=== PATIENT | female | born 1930 | race Caucasian/White ===

== ENCOUNTER 2017-01-07 06:56 | Inpatient (IN) | payer MEDICARE, OTHER ==
[~2017-01-07] VITALS: Ht 157.5 cm; Wt 80.5 kg
--- NOTE | ~2017-01-07 | DS ---
PATIENT'S NAME: LIZ WHITLEY [facility] AGE: 86 Y [address] ROOM: [id number] [place] [address] LOCATION: [facility] [place] ADMIT DATE: 01/07/2017 Discharge Summary DISCHARGE DATE: 01/12/2017 FAMILY PHYSICIAN: Brenda Andujar MD ATTENDING PHYSICIAN: Harshal Holcomb DISCHARGE DIAGNOSES: 1. Sepsis, secondary to recurrent Clostridium difficile colitis. 2. Acute kidney injury on chronic kidney disease. 3. Essential hypertension. 4. Generalized weakness. 5. Right 3rd through 5th metatarsal fracture. HOSPITAL COURSE: Please refer to admitting history and physical as dictated by Dr. Holcomb. Briefly, the patient was admitted to [facility] with diarrhea, weakness, and fever. Stool was tested for C. diff, which came back as positive. She was started on fluids. Her home medications were resumed. She was started on Florastor 250 mg p.o. twice a day. She was also started on Flagyl 500 mg p.o. every 8 hours for 10 days, and Dificid 200 mg p.o. twice daily for 10 days. Heparin was used for DVT prophylaxis. Due to the patient's right foot pain, Dr. Napoles was consulted. She was found to have a right 3rd, 4th, and 5th metatarsal fracture. She was placed in a short Cam walker boot to be on when ambulating or in the down position. She was made heel weightbearing. Physical Therapy and Occupational Therapy were consulted. Her laboratory data was monitored throughout her stay. Her creatinine improved with fluids. Her home blood pressure medicines were renewed. Her stools did gradually become formed. She had no further diarrhea. She was able to ambulate with her Cam boot. It was recommended that she continue outpatient PT and OT while at the assisted living facility. On 01/12/2017, the patient's vital signs were stable. It was felt as though she was safe to discharge to assisted living facility. Follow up with Dr. Andujar for the CBC and BMP in 3 days. Follow up with Dr. Napoles in 1 week. LABORATORY DATA: Sodium remained stable, 138-141; potassium of 3.7-4.2; calcium 8.4; BUN upon admit 29, prior to discharge 16; creatinine 1.7 upon admit, it trended down to 1.0 prior to discharge; AST 17; ALT 20; phos 2.5; GFR upon admit 28, prior to discharge 52; hemoglobin 11.5; WBCs upon admit 11.5, prior to discharge 5.8. UA: Leukocytes 100, nitrites negative, wbc's 5-10, bacteria negative. Urine culture likely contaminant. Stool positive for C. diff. PATIENT'S NAME: LIZ WHITLEY [facility] AGE: 86 Y [address] ROOM: [address] [address] LOCATION: [facility] [place] ADMIT DATE: 01/07/2017 Discharge Summary DISCHARGE DATE: 01/12/2017 FAMILY PHYSICIAN: Brenda Andujra MD ATTENDING PHYSICIAN: Harshal Holcomb DISCHARGE INSTRUCTIONS: The patient will be discharged to assisted living facility with home health care, PT, and OT to follow. Diet: As tolerated. Activity: Heel weightbearing with Cam boot to right foot. Cam boot on when up. Use walker at all times. FOLLOWUP: With Dr. Andujar with CBC and BMP in 3 days. Follow up with Dr. Napoles in 1 week. DISCHARGE MEDICATIONS: 1. Vitamin D3, 1000 units p.o. daily. 2. Celexa 40 mg p.o. daily. 3. Spironolactone 12.5 mg p.o. daily. 4. Ramipril 10 mg p.o. daily. 5. Tylenol 650 mg p.o. twice a day. 6. Calcium with vitamin D, 1 tablet p.o. twice daily. 7. [place]-3 1000 mg orally four times a day. 8. MiraLAX 17 g p.o. as needed. 9. Melatonin 3 mg p.o. q.h.s. 10. Myrbetriq 50 mg p.o. q.h.s. 11. Pepcid 20 mg p.o. q.h.s. 12. Neurontin 300 mg p.o. twice daily. 13. Clonazepam 0.5 mg p.o. q.h.s. 14. Colace 100 mg p.o. twice daily p.r.n. 15. Pravastatin 20 mg p.o. q.h.s. 16. Tylenol 650 mg p.o. q.4 hours as needed for pain or fever. 17. Amoxicillin 2000 mg p.o. one time as needed prior to dental appointment. 18. Milk of magnesia 30 mL p.o. daily as needed for constipation. 19. Flonase 1 spray in each nostril daily. 20. Nystatin topical ointment three times daily as needed for rash. 21. Bumex 1 mg p.o. daily with followup with PCP for further instructions as this was a recent dosage change. 22. Albuterol 2 puffs four times daily. 23. Albuterol inhaler one every 4 hours as needed. 24. Dificid 200 mg p.o. twice daily, stop date on 01/16/2017 after p.m. dose. 25. Flagyl 500 mg p.o. every 8 hours, stop date 01/17/2017. 26. Florastor 250 mg p.o. twice a day. Thank you for allowing us to participate in the care of this patient as she has been hospitalized at [facility]. PATIENT'S NAME: LIZ WHITLEY [facility] AGE: 86 Y [address] ROOM: [place] [address] LOCATION: [facility] ADMIT DATE: 01/07/2017 Discharge Summary DISCHARGE DATE: 01/12/2017 FAMILY PHYSICIAN: Brenda Andujar MD ATTENDING PHYSICIAN: Harshal Holcomb HAL TORRES APRN FOR MD MICHELLE NOVA/modl /[id number] CC: Brenda Andujar MD d: 01/13/17 0114 t: 01/18/17 1512, DISCHARGE SUMMARY
--- NOTE | ~2017-01-07 | HP ---
PATIENT'S NAME: LIZ WHTILEY [facility] AGE: 86 Y [address] ROOM: [address] [address] [place] [facility] [place] DATE: 01/07/2017 History & Physical DISCHARGE DATE: FAMILY PHYSICIAN: Brenda Andujar MD ATTENDING PHYSICIAN: MICHAELA PICKENS DATE OF SERVICE: CHIEF COMPLAINT: Diarrhea since yesterday. HISTORY OF PRESENT ILLNESS: This is an 86-year-old female, long term resident, who was discharged here from our hospital in October 2016 with severe sepsis secondary to C. diff colitis. At that time, the patient was treated with p.o. vancomycin and Flagyl. Upon discharge, the patient recovered. However, her C. diff recurred in the end of October 2016, at that time, the patient was hospitalized in [facility] for roughly a week. During that hospitalization, the patient developed hives to p.o. vancomycin according to the patient, and the patient's daughter. P.o. vancomycin was stopped, and the patient was just treated with Flagyl. The patient subsequently improved and recovered. The Flagyl finished on December 30, 2016. However, yesterday morning, she started developing this recurrent diarrhea again, she had about 10 times yesterday. Today, she has had about 3 times. Due to the concern for recurrent C. diff, the patient was brought here for evaluation. In the emergency room, the patient was tested positive for C. diff again. She denies any abdominal pain or any shortness of breath or any other complaints. REVIEW OF SYSTEMS: As mentioned in the history of present illness. All other systems reviewed and negative except those mentioned in the history of present illness. PAST MEDICAL HISTORY: 1. Depression. 2. Sick sinus syndrome, status post pacemaker implantation. 3. Hypertension. 4. Hyperlipidemia. 5. Osteoarthritis. 6. C. diff colitis treated here in our hospital in September, was discharged in October 2016. 7. History of recurrent C. diff infection again in end of October and discharged in November 2016 from the [facility]. 8. Rectoanal mass (the patient does not want to pursue any further imaging or testing due to her advanced age). PATIENT'S NAME: LIZ WHITLEY [facility] AGE: 86 Y [address] ROOM: [address] [address] LOCATION: [facility] [place] ADMIT DATE: 01/07/2017 History & Physical DISCHARGE DATE: FAMILY PHYSICIAN: Brenda Andujar MD ATTENDING PHYSICIAN: MICHAELA PICKENS 9. CKD stage 3, baseline GFR around 50 and baseline creatinine around 1.1. ALLERGIES: APPARENTLY ALLERGIC TO P.O. VANCOMYCIN IN [facility] WITH GENERALIZED HIVES. HOME MEDICATIONS: Currently is being reconciled. SOCIAL HISTORY: The patient denies any cigarette or alcohol or illegal drug use. FAMILY HISTORY: The patient could not remember how her parents or any past medical history in her parents. PAST SURGICAL HISTORY: 1. Status post bilateral shoulder surgery. 2. Status post bilateral knee surgery. 3. Status post carpal tunnel syndrome repair. 4. Status post tonsillectomy. 5. Status post pacemaker implantation. PHYSICAL EXAMINATION: VITAL SIGNS: At the time of my dictation, temperature 97.9, heart rate 60, respirations 16, blood pressure 148/60, saturation 95% on room air. GENERAL APPEARANCE: Alert and oriented x3, in no acute distress. HEENT: Pupils equally round and reactive to light. Extraocular muscles intact. Anicteric sclerae. Nasal turbinates are normal bilaterally. Moist oral mucosa. NECK: No JVD. CARDIOVASCULAR: Regular rate and rhythm. Normal S1, S2. No murmur, no rubs, no gallops. RESPIRATORY: Clear. Chest wall nontender to palpation. ABDOMEN: Soft, nontender, obese, bowel sounds present, and no hepatosplenomegaly. EXTREMITIES: No edema in upper or lower extremity. In the right ankle and in the right foot area, the patient has some ecchymosis, that is tender to palpation. The patient says that this morning when she was trying to get back onto the bed, the patient did hit the right foot against the ground when she felt weak in her leg, but she did not hit her head, and she did not suffer any syncope. MUSCULOSKELETAL: Range of motion intact. SKIN: Ecchymosis in the right foot. Otherwise, no ulcer, no rash, no cyanosis. PATIENT'S NAME: LIZ WHITLEY [facility] AGE: 86 Y [address] ROOM: [address] [address] LOC[place]: [facility] [place]MIT DATE: 01/07/2017 History & Physical DISCHARGE DATE: FAMILY PHYSICIAN: Brenda Andujar MD ATTENDING PHYSICIAN: MICHAELA PICKENS NEUROLOGIC: Grossly nonfocal. LABORATORY DATA: Lactic acid 1.4. White blood cell 11.5, hemoglobin 12.5, hematocrit 38.9, MCV 99, platelets 273, glucose 118, BUN 29, creatinine 1.7, sodium 138, potassium 4.2, chloride 100, CO2 of 32. Calcium 9.3, total protein 6.2, albumin 3.1, AST 17, ALT 20, alkaline phosphatase 57, total bilirubin 0.8, GFR 28. Anion gap 10.2. Urinalysis are leukocyte 100, nitrite negative, bacteria negative, white blood cells 5-10. Influenza screening negative. Procalcitonin 0.07. IMAGING STUDIES: Chest x-ray on admission shows stable chest. No evidence of acute disease. ASSESSMENT AND PLAN: 1. Regarding her sepsis secondary to recurrent C. difficile colitis: Apparently, the patient has allergy to p.o. vancomycin when she was in [facility] just in November 2016 with generalized hives. The plan will be continue with p.o. Flagyl, and I will start her on the p.o. Florastor 250 mg p.o. b.i.d. as well as fidaxomicin 200 mg p.o. b.i.d. Ideally, I will use the p.o. vancomycin but given the patient has recurrent C. difficile and is apparently allergic to p.o. vancomycin, therefore I will use the fidaxomicin. The patient should consider fecal implant in the future given that the patient has had multiple recurrent C. difficile infection already, and the patient lives in a long term, which put her even at high risk of having another recurrent C. difficile. Another potential risk factor is her advanced age. Her daughter, who also had a C. difficile infection multiple times in the past, she is status post fecal implant and she is already cured. I have advised the daughter to ask the primary care physician to refer the patient in the future for fecal implant. The patient can have a cardiac diet. Fall and aspiration precaution. I will also get the medical records from the [facility] to see what reaction and what medication they used for her C. difficile in October 2016 while she was hospitalized over there. PT and OT. 2. Regarding her right foot ecchymosis: Probably, the patient sprained her ankle. I will get an x-ray of the right foot to rule out any fracture. I will put ice pack to the right foot t.i.d. p.r.n. for inflammation and pain control. For pain control, she can have Tylenol. I will avoid NSAID given that she currently has acute kidney injury on chronic kidney disease. 3. Regarding her acute kidney injury on chronic kidney disease stage 3: I will hydrate her with normal saline at 75 mL/h and check the basic metabolic panel again in the morning. 4. Regarding her pyuria: In the setting of sepsis, I will start her on IV ceftriaxone given that urine culture has already been obtained, and she PATIENT'S NAME: LIZ WHITLEY [facility] AGE: 86 Y [address] ROOM: [place] [address] [place]: [facility] [place] DATE: 01/07/2017 History & Physical DISCHARGE DATE: FAMILY PHYSICIAN: Brenda Andujar MD ATTENDING PHYSICIAN: MICHAELA PICKENS does have some pyuria on urinalysis. Follow up with blood culture and also on the urine culture. 5. Deep venous thrombosis prophylaxis: The patient will be on heparin subcu 3 times a day. 6. Code status: Sheis a DNR/DNI. 7. Regarding her hypertension: I will hold the blood pressure medication given that she has acute kidney injury on chronic kidney disease in the setting of sepsis from C. difficile colitis. 8. Regarding her sick sinus syndrome, status post pacemaker implantation: No active issue. Time spent on the day of admission 40 minutes including chart review, interviewing and examining the patient, addressing all the questions and concerns the patient and the patient's daughter had at the bedside, and I also went over the plan of care in detail with the patient, the patient's daughter, and also with the nurse. MICHAELA PICKENS MD CC/solo /[id number] D: [id number] T: [id number] HISTORY & PHYSICAL
--- NOTE | ~2017-01-07 | CON ---
PATIENT'S NAME: LIZ WHITLEY [facility] AGE: 86 Y [address] ROOM: [place] [address] [place]: [facility] [place] ADMIT DATE: 01/07/2017 Consultation DISCHARGE DATE: FAMILY PHYSICIAN: Brenda Andujar MD ATTENDING PHYSICIAN: MICHAELA PICKENS REASON FOR CONSULTATION: Right foot pain. HISTORY OF PRESENT ILLNESS: This is an 86-year-old female patient, who was admitted on January 07, 2017, with recurrent C. diff and weakness. She was hospitalized for severe sepsis and C. diff here at [facility] in 2016. She did recover and discharged.the patient was later admitted to [facility] for another week's time for recurrent Clostridium difficile. The patient during her hospitalization at [facility] did develop a reaction to vancomycin. The patient did finish a course of Flagyl on December 30, 2016. The patient says that she was trying to get into bed the other night when she steps up onto her "box" to get into bed as she normally would. The patient says that she did have the help of staff as she normally did. The patient says that she fell to her knees and caught her right foot. Records indicate that the patient was helped to the ground by a staff at this time. The patient complains of right foot pain with weightbearing relieved with rest and elevation. The patient denies any prior injuries or surgeries to her right foot. X-rays do show mildly displaced distal metatarsal fractures of the third through fifth digits. PAST MEDICAL HISTORY: 1. Depression. 2. Sick sinus syndrome status post pacemaker implantation. 3. Hypertension. 4. Hyperlipidemia. 5. Osteoarthritis. 6. History of Clostridium difficile, treated recently in the past with recurrence. 7. Rectal anal mass (the patient does not want to pursue further imaging due to her advanced age). 8. Chronic kidney disease. PAST SURGICAL HISTORY: 1. Bilateral shoulder surgery. 2. Bilateral knee replacements. 3. Carpal tunnel syndrome repair. 4. Tonsillectomy. PATIENT'S NAME: LIZ WHITLEY [facility] AGE: 86 Y [address] ROOM: [place] [address] LOCATION: [facility] [place] ADMIT DATE: 01/07/2017 Consultation DISCHARGE DATE: FAMILY PHYSICIAN: Brenda Andujar MD ATTENDING PHYSICIAN: MICHAELA PICKENS 5. Pacemaker implantation. ALLERGIES: STRAWBERRIES, GLUTEN, AND P.O. VANCOMYCIN. MEDICATIONS: 1. Celexa 40 mg p.o. daily. 2. Dificid 200 mg p.o. b.i.d. 3. Flagyl 500 mg p.o. q.8 hours. 4. Flonase 50 mcg per inhalation one spray nasally daily. 5. Florastor 250 mg p.o. b.i.d. 6. Heparin 500 units subcu q.8 hours. 7. Klonopin 0.5 mg p.o. q.h.s. 8. Melatonin 3 mg p.o. q.h.s. 9. Neurontin 100 mg p.o. b.i.d. 10. Pepcid 20 mg p.o. q.h.s. 11. Pravachol 20 mg p.o. q.h.s. 12. Proventil inhaler 2 puffs inhalations q.i.d. 13. Rocephin 1 gram IV b.i.d. 14. Strattera 20 mg p.o. daily. SOCIAL HISTORY: The patient denies any cigarette or alcohol or illegal drug use. FAMILY HISTORY: The patient's family history is unremarkable. REVIEW OF SYSTEMS: Positive for history of C. diff. Negative for any shortness of breath or abdominal pains. A 10-point ROS was negative. PHYSICAL EXAMINATION: CONSTITUTIONAL: This is an 86-year-old female patient, who is in no acute distress. She is alert and oriented. VITAL SIGNS: Blood pressure is 148/60, heart rate is 60, respirations 16, and temperature 97.4 degrees. SKIN: Warm, dry, and intact. HEENT: Head was atraumatic and normocephalic. Extraocular muscles intact. Mouth is moist. Oropharynx clear. NECK: Supple. Trachea is midline. HEART: Regular rate and rhythm. LUNGS: Respirations are even and unlabored. ABDOMEN: Soft, nontender, and nondistended. NEUROVASCULAR: Cranial nerves II through XII are grossly intact. MUSCULOSKELETAL: Right lower extremity: Right thigh, calf, and foot were PATIENT'S NAME: LIZ WHITLEY [facility] AGE: 86 Y [address] ROOM: [id number] [place], [place] [address] LOCATION: [facility] [place]MIT DATE: 01/07/2017 Consultation DISCHARGE DATE: FAMILY PHYSICIAN: Brenda Andujar MD ATTENDING PHYSICIAN: MICHAELA PICKENS. Sensation to the right lower extremity was grossly intact to light touch. She did have palpable pedal pulses. Capillary refill in the right toes are less than 2 seconds. She did have a well healed surgical scar over her right knee. Range of motion of the right knee was 0 to approximately 115 degrees of flexion. Collateral ligaments were stable. Right foot: The patient's range of motion of the right ankle was approximately neutral to 40 degrees of plantar flexion. The patient did have some mild tenderness to palpation distally third through fifth metatarsals. There was ecchymosis and swelling on the dorsum of the foot and third through fifth toes. IMAGING: X-rays reviewed with Dr. Napoles, showed fractures of the right distal third through the fifth metatarsals. Official x-ray report showed acute mildly displaced fractures of the distal diaphysis of the right third, fourth, and fifth metatarsals. LAB VALUES: Hemoglobin is 12.5, hematocrit is 38.9, WBCs are 11.5, and platelet count is 273. Sodium is 141, potassium is 4.0, chloride is 106, CO2 is 27, BUN is 21, creatinine is 1.2, glucose is 86, calcium is 8.1, and magnesium is 2.0. IMPRESSION: Right mildly displaced distal metatarsal fractures of the third, fourth, and fifth metatarsals. PLAN: The patient was placed into a compressive dressing of the right foot to help reduce any swelling. The patient is to be placed in a short CAM walker boot. She may be heel weightbearing of the right foot as tolerates. She is to continue with pain control as warranted. She is to also continue on DVT prophylaxis. Thank you for allowing us to participate in the care of this nice lady. For any further assistance in the future, please contact us. EDER JAQUEZ PA-C FOR MD YADIRA SUAREZ/solo /[id number] d: 01/08/17 1900 t: 01/13/17 1837, CONSULTATION REPORT
--- NOTE | ~2017-01-07 | ER ---
PATIENT'S NAME: LIZ WHITLEY [facility] AGE: 86 Y [address] ROOM: [place] [address] LOCATION: [facility] ADMIT DATE: 01/07/2017 ER/Outpatient Report DISCHARGE DATE: FAMILY PHYSICIAN: Brenda Andujar MD ATTENDING PHYSICIAN: MICHAELA PICKENS TIME OF ARRIVAL: 0656 hours. TIME SEEN: 0710 hours. IDENTIFICATION: An 86-year-old female. CHIEF COMPLAINT: Diarrhea, weakness, and fever. HISTORY OF PRESENT ILLNESS: The patient is an 86-year-old female who comes in by ambulance from an assisted living facility. She states she had diarrhea all day yesterday; although, none today or last night, but this morning was very weak. Staff states that she would have fallen on the floor, but they were able to lower her to the floor; and per review, staff documented that she had a temp of 101. On arrival here, the patient denies feeling lightheaded or dizzy; although, she is weak. She has had no loose stools today. Her daughter states she has had a history of C. difficile colitis and severe sepsis hospitalized October 27 to November 12. Her daughter states she did develop a rash, secondary to the vancomycin ALLERGIES: STRAWBERRIES AND GLUTEN. CURRENT MEDICATIONS: 1. Flonase 1 spray to each nostril once daily. 2. Cholecalciferol 1000 international units daily. 3. Celexa 40 mg daily. 4. Spironolactone 12.5 mg daily. 5. Ramipril 10 mg daily. 6. Tylenol 325 2 tablets twice daily. 7. Bumex 2 mg daily. 8. Calcium with vitamin D 600 mg b.i.d. 9. [place]-3 1000 mg q.i.d. 10. Ventolin 2 puffs q.6 h. p.r.n. 11. Melatonin 3 mg at h.s. PATIENT'S NAME: LIZ WHITLEY [facility] AGE: 86 Y [address] ROOM: [place] [address] LOCATION: [facility] ADMIT DATE: 01/07/2017 ER/Outpatient Report DISCHARGE DATE: FAMILY PHYSICIAN: Brenda Andujar MD ATTENDING PHYSICIAN: MICHAELA PICKENS 12. Myrbetriq 50 mg daily. 13. Pepcid 20 mg at h.s. 14. Gabapentin 300 mg b.i.d. 15. Klonopin 0.5 mg at h.s. 16. Pravastatin 20 mg at h.s. 17. P.r.n. medications to include Tylenol, amoxicillin, milk of magnesia, Colace, MiraLAX, albuterol, and nystatin. MEDICAL PROBLEMS: Severe sepsis in September of 2016, C. difficile colitis, acute hypoxic respiratory failure, secondary to pneumonia, acute kidney injury, candidal intertrigo, hypertension, rectal mass, the patient refused to pursue further diagnostic testing, hypokalemia, gluten intolerance, depression, sick sinus syndrome, status post pacemaker implantation, and osteoarthritis. SOCIAL HISTORY: The patient lives at [facility]. Tobacco use, denies. Alcohol use, denies. Drug use, denies. FAMILY HISTORY: No pertinent family history identified. PAST SURGICAL HISTORY: Bilateral shoulder surgery, bilateral knee surgery, carpal tunnel syndrome repair, tonsillectomy, and pacemaker implantation. REVIEW OF SYSTEMS: All systems reviewed and negative other than what is noted on the HPI. PHYSICAL EXAMINATION: VITAL SIGNS: Height 5 feet, 1 inch, weight 81 kg. Blood pressure 115/55, pulse 72, respirations 16, temperature 99.2, and sats 95% on room air. GENERAL: An 86-year-old female in no acute distress; although, generalized weakness is noted. HEENT: Head: Normocephalic, atraumatic. Ears: TMs translucent both ears. Eyes: Pupils equal and reactive to light and accommodation. Extraocular movements intact. Nose: Mucosa pink. No lesions. Mouth: No lesions. Pharynx benign. Mucous membranes are dry. NECK: Supple. No lymphadenopathy. LUNGS: Clear to auscultation. Breath sounds are equal. HEART: Regular rate and rhythm. ABDOMEN: Bowel sounds present. Soft, nondistended. No hepatosplenomegaly. No palpable masses. Nontender. SKIN: [place], warm, and dry. No lesions or rashes noted. NEURO: The patient is alert and oriented x4. Cranial nerves 2 through 12 PATIENT'S NAME: LIZ WHITLEY [facility] AGE: 86 Y [address] ROOM: [place] [id number] LOCATION: [facility] ADMIT DATE: 01/07/2017 ER/Outpatient Report DISCHARGE DATE: FAMILY PHYSICIAN: Brenda Andujar MD ATTENDING PHYSICIAN: MICHAELA PICKENS grossly intact. Motor strength 5/5 throughout. Sensation is intact to light touch. EXTREMITIES: Trace of edema. No calf tenderness. EMERGENCY DEPARTMENT COURSE: An IV was initiated and labs were obtained to include blood cultures x2. EKG normal sinus rhythm at 60 beats per minute. No acute ST-elevation or depression. She does have an atrial paced rhythm. She has an intraventricular conduction delay that was not noted on prior EKG, November 24, 2012. Sodium 138, potassium 4.2, chloride 100, CO2 32, BUN 29, creatinine elevated at 1.7, which is up from 1.2, November 12. Blood sugar 118. Liver enzymes normal. Hemoglobin 12.5, hematocrit 38.9, platelets 273, and white count 11.5 with a normal differential. Procalcitonin 0.07. UA specific gravity 1.010, pH 6, 5-10 white cells, 0-10 red cells, 10-20 epithelial cells, negative bacteria. Urine culture pending. Stool for C. diff is positive, fecal leukocytes few, occult blood negative, O and P screen negative. Lactate 1.4. Chest x-ray, no acute process, pending Radiology over-read. Influenza A and B is negative. IMPRESSION: 1. Generalized weakness. 2. Recurrent C. difficile colitis. 3. Mild dehydration, 500 mL fluid bolus given. 4. Nonspecific intraventricular conduction delay, which is changed from previous EKG. 5. Acute kidney injury, creatinine elevated at 1.7. PLAN: Plan for admission per Dr. Pickens who evaluated the patient here in the emergency room. MAGEN SPRING MD CAR/modl /[id number] d: 01/08/177 t: 01/08/17 0800, OUTPATIENT REPORT
[~2017-01-07 06:56] MED LIST changes: -ALBUTEROL2.5 MG/31 INH; -BUMETANIDE2 MG PO; -DIFICID200 MG PO; -FLAGYL500 MG PO; -PROVENTIL OR V6.7 GM INH
[2017-01-07 07:51] LABS: BASOPHIL # 0.1 K/uL (0.0-0.2); BASOPHIL % 0.6 %; EOSINOPHIL % 0.2 %; HEMOGLOBIN 12.5 g/dL (10.0-15.0); IMMATURE GRANULOCYTE # 0.1 K/uL (0.0-0.3); IMMATURE GRANULOCYTE % 0.6 %; LYMPHOCYTE # 0.7 K/uL (0.8-4.0); LYMPHOCYTE % 5.8 %; MCH 31.8 pg (27.0-34.0); MONOCYTE # 0.8 K/uL (0.0-1.0); MONOCYTE % 6.6 %; MPV 8.9 fl (9.4-12.4); NEUTROPHIL % 86.2 %; NRBC % 0 /100WBC (0-0.00); RBC 3.93 M/uL (3.00-5.00); RDW-CV 13.6 % (11.9-14.6); WBC 11.5 K/uL (4.0-11.0)
[2017-01-07 07:55] LABS: HEMATOCRIT 38.9 % (30.0-46.0); MCHC 32.1 gm/dL (32.0-36.5); PLATELET COUNT 273 K/uL (150-450)
[2017-01-07 08:09] LABS: ALBUMIN 3.1 gm/dL (3.5-5.0); ANION GAP 10.2 (10.0-19.0); CALCIUM 9.3 mg/dL (8.5-10.5); CREATININE 1.7 mg/dL (0.5-1.1); POTASSIUM 4.2 mMol/L (3.7-5.1); TOTAL BILIRUBIN 0.8 mg/dL (0.0-1.5); TOTAL PROTEIN 6.2 g/dL (6.0-8.4)
[2017-01-07 09:55] LABS: BILIRUBIN URINE NEGATIVE (NEGATIVE); BLOOD URINE NEGATIVE /UL (NEGATIVE); COLOR URINE STRAW (YELLOW); GLUCOSE URINE NEGATIVE (NEGATIVE); KETONE URINE NEGATIVE (NEGATIVE); LEUKOCYTES URINE 100 /UL (NEGATIVE); NITRITE URINE NEGATIVE (NEGATIVE); PROTEIN URINE NEGATIVE (NEGATIVE); TURBIDITY URINE CLEAR (CLEAR); UROBILINOGEN URINE NORMAL (NORMAL)
[2017-01-07 10:03] LABS: RBC URINE 0-2 #/HPF (NEGATIVE)
[2017-01-07 10:04] LABS: AMORPHOUS URINE 1+ (NEGATIVE); BACTERIA URINE NEGATIVE (NEGATIVE)
[2017-01-07] MEDS ORDERED: BUMETANIDE2 MG PO (11:43)
[2017-01-07] MEDS ORDERED: PROVENTIL OR V6.7 GM INH (11:45)
[2017-01-07] MEDS ORDERED: ALBUTEROL2.5 MG/31 INH (11:52)
[2017-01-08 08:17] LABS: CALCIUM 8.1 mg/dL (8.5-10.5); CREATININE 1.2 mg/dL (0.5-1.1)
[2017-01-09 06:03] LABS: BASOPHIL # 0.1 K/uL (0.0-0.2); EOSINOPHIL # 0.1 K/uL (0.0-0.5); EOSINOPHIL % 1.5 %; HEMATOCRIT 36.3 % (30.0-46.0); HEMOGLOBIN 11.5 g/dL (10.0-15.0); IMMATURE GRANULOCYTE # 0.1 K/uL (0.0-0.3); IMMATURE GRANULOCYTE % 0.9 %; LYMPHOCYTE # 1.3 K/uL (0.8-4.0); LYMPHOCYTE % 22.8 %; MCH 31.7 pg (27.0-34.0); MCHC 31.7 gm/dL (32.0-36.5); MONOCYTE # 0.5 K/uL (0.0-1.0); MONOCYTE % 8.2 %; MPV 8.9 fl (9.4-12.4); NEUTROPHIL # (ANC) 3.8 K/uL (1.8-7.8); NEUTROPHIL % 65.6 %; NRBC % 0 /100WBC (0-0.00); PLATELET COUNT 270 K/uL (150-450); RBC 3.63 M/uL (3.00-5.00); RDW-CV 13.5 % (11.9-14.6); WBC 5.8 K/uL (4.0-11.0)
[2017-01-09 06:18] LABS: ANION GAP 9.7 (10.0-19.0); CALCIUM 8.2 mg/dL (8.5-10.5); CREATININE 1.2 mg/dL (0.5-1.1); MAGNESIUM 2.1 mg/dL (1.8-2.6); POTASSIUM 3.7 mMol/L (3.7-5.1)
[2017-01-10 05:44] LABS: ANION GAP 9.9 (10.0-19.0); CALCIUM 8.4 mg/dL (8.5-10.5); POTASSIUM 3.9 mMol/L (3.7-5.1)
[2017-01-11 06:02] LABS: ANION GAP 8.1 (10.0-19.0); CALCIUM 8.4 mg/dL (8.5-10.5); POTASSIUM 4.1 mMol/L (3.7-5.1)
[2017-01-12] MEDS ORDERED: DIFICID200 MG PO (12:55)
[2017-01-12] MEDS ORDERED: FLAGYL500 MG PO (12:56)
[2017-01-12] MEDS ORDERED: FLORASTOR250 MG PO (12:57)
== END 2017-01-12 14:40 | disposition home health service (06) | DRG 872 ==
LOC: GMED 06:56 → GMSU 10:09
PROVIDERS: Family Medicine; Internal Medicine; Nurse Practitioner Family; ADMIT Internal Medicine
DX: A41.4 Sepsis due to anaerobes (principal); N17.9 Acute kidney failure, unspecified; A04.7 Enterocolitis due to Clostridium difficile; I49.5 Sick sinus syndrome; N39.0 Urinary tract infection, site not specified; M84.474A Pathological fracture, right foot, initial encounter for fracture; I12.9 Hypertensive chronic kidney disease with stage 1 through stage 4 chronic kidney disease, or unspecified chronic kidney disease; N18.3 Chronic kidney disease, stage 3 (moderate); Z66 Do not resuscitate; B96.89 Other specified bacterial agents as the cause of diseases classified elsewhere
CPT/HCPCS: J0696; J1644; J7030

== ENCOUNTER → 2017-01-07 | Outpatient (CLI) | payer MEDICARE, OTHER ==
[~2017-01-07] MED LIST: ALBUTEROL2.5 MG/31 INH; ALTACE10 MG PO; AMOXICILLIN500 MG PO; BUMETANIDE2 MG PO; CALCIUM 600 +1 EAC3 PO; CARDIZEM60 MG PO; CELEXA40 MG PO; COLACE100 MG PO; DIFICID200 MG PO; FISH OIL 1,0001 EACH PO; FLAGYL500 MG PO; FLONASE 50 MCG/16 GM NOSE; FLORASTOR250 MG PO; IMODIUM2 MG PO; KLONOPIN0.5 MG PO; LASIX20 MG PO; MELATONIN3 MG PO; MILK OF MA400 MG/5 M PO; MIRALAX PO527 GM/BOT PO; MYCOSTATIN OINT30 GM TOP; MYRBETRIQ50 MG PO; NASONEX NASAL S17 GM NOSE; NEURONTIN300 MG PO; PEPCID20 MG PO; PRAVACHOL20 MG PO; PROVENTIL OR V6.7 GM INH; SPIRONOLACTONE25 MG PO; TYLENOL325 MG PO; VITAMIN D1000 UNI1 PO
== END | disposition disaster alternative care site (69) ==
LOC: GAMB 06:41
DX: R19.7 Diarrhea, unspecified (principal); I10 Essential (primary) hypertension; K21.9 Gastro-esophageal reflux disease without esophagitis; R53.1 Weakness
CPT/HCPCS: A0425; A0429

== ENCOUNTER 2017-01-30 08:29 | Inpatient (IN) | payer MEDICARE, OTHER ==
[~2017-01-30] VITALS: Ht 154.9 cm; Wt 81.5 kg
--- NOTE | ~2017-01-30 | CON ---
PATIENT'S NAME: LIZ WHITLEY [facility] AGE: 86 Y [address] ROOM: [address] [place] [id number] LOCATION: [facility] ADMIT DATE: 01/30/2017 Consultation DISCHARGE DATE: FAMILY PHYSICIAN: Brenda Andujar MD ATTENDING PHYSICIAN: Angelito Williamson REFERRING PHYSICIAN: Kaushik Rubio MD REFERRING PHYSICIAN: Angelito Williamson MD. HISTORY OF PRESENT ILLNESS: This is an 86-year-old female who was admitted once again for C. diff. She also had elevated fever and suspected pneumonia at this time. She started to have intermittent wide-complex tachycardia suspicious for VT, and therefore, Dr. Rubio was consulted. She does have a pacemaker as well. She complained of a little bit of chest pain while at rest, but has not had any exertional chest discomfort. She is complaining of abdominal pain and weakness and has had multiple episodes of diarrhea and is tested positive for C. diff. Normally, she does not walk very much due to weakness. She does carry a history of paroxysmal atrial fibrillation. She has not had any palpitations. She does not really notice any lightheadedness or dizziness. She has been a little short of breath without orthopnea or PND. She denies any increase in peripheral edema. PAST MEDICAL HISTORY: 1. Essential hypertension. 2. Dyslipidemia. 3. Depression. 4. Mild dementia. 5. History of atrial flutter/atrial fibrillation, diagnosed in 2008. 6. History of migraines. 7. Degenerative joint disease. 8. Urge incontinence. 9. Sick sinus syndrome, post pacemaker. 10. History of colitis. 11. C. diff. PAST SURGICAL HISTORY: 1. Pacemaker with generator exchange, 03/17/2016, [facility]. 2. Right knee surgery, September 27, 2014, which was a total knee arthroplasty. 3. Left total knee arthroplasty, 04/01/2009. 4. DC cardioversion 05/04/2008, initial dual-chamber pacemaker, [employer] 03/15/2008. 5. Cataract removal, 11/30/2004. 6. Right shoulder replacement, 10/28/2002. 7. Left shoulder replacement, 10/28/2001. PATIENT'S NAME: LIZ WHITLEY [facility] AGE: 86 Y [address] ROOM: [address] [place] [id number] [facility] ADMIT DATE: 01/30/2017 Consultation DISCHARGE DATE: FAMILY PHYSICIAN: Brenda Andujar MD ATTENDING PHYSICIAN: Angelito Williamson 8. Left knee scope, 1988. 9. Right carpal tunnel release, 1968. 10. Tonsillectomy, 193. ALLERGIES: SOY, MOLASSES, GLUTEN, AMLODIPINE, VANCOMYCIN, STRAWBERRIES, PINEAPPLE, AND NUTS. CURRENT MEDICATIONS: 1. Acetaminophen 325 mg every 4 hours as needed. 2. Albuterol 2 puffs q.i.d. 3. Amoxicillin 500 mg, she takes 2000 mg prophylactic dental procedures. 4. Bumex 2 mg p.o. every day, currently on hold. 5. Calcium 600 mg b.i.d. 6. Vitamin D3 1000 units every day. 7. Celexa 40 mg daily. 8. Klonopin 0.5 mg every h.s. 9. Docusate sodium 100 mg b.i.d. 10. Pepcid 20 mg every h.s. 11. Flonase 50 mcg one spray daily. 12. Gabapentin 300 mg b.i.d. 13. Magnesium hydroxide 30 mL every day. 14. Melatonin 3 mg every h.s. 15. Myrbetriq 50 mg every day. 16. Nystatin powder 30 g ointment one topical t.i.d. 17. [place]-3 fish oil 1000 mg p.o. q.i.d. 18. MiraLAX 527 g per bottle 17 g daily. 19. Pravastatin 20 mg daily. 20. Ramipril 10 mg every day. 21. Florastor 250 mg b.i.d. 22. Spironolactone 25 mg 1/2 tablet every day. FAMILY HISTORY: Noncontributory. SOCIAL HISTORY: She is a nonsmoker. REVIEW OF SYSTEMS: GENERAL: She is very fatigued, forgetful. HEAD: No history of headache right now. EYES: No blurred vision or double vision. EARS: No problems with hearing. NOSE: No epistaxis or rhinorrhea. MOUTH: No gingival bleeding. PATIENT'S NAME: LIZ WHITLEY [facility] AGE: 86 Y [address] ROOM: [id number] [place], [place] [address] LOCATION: [facility] ADMIT DATE: 01/30/2017 Consultation DISCHARGE DATE: FAMILY PHYSICIAN: Brenda Andujar MD ATTENDING PHYSICIAN: Angelito Williamson THROAT: Denies difficulty with swallowing. PULMONARY: Denies cough, but is a little short of breath. GASTROINTESTINAL: Complaining of GI upset with some abdominal pain and cramping. : Negative for urinary frequency. She does have dribbling at times. MUSCULOSKELETAL: She has degenerative joint disease with arthritic discomfort. PHYSICAL EXAMINATION: VITAL SIGNS: Her height is 5 feet 1 inch, she weighs 81.8 kg. Her blood pressures have been elevated in the 170s to 200s over 90s. Heart rate is 60s to 70s with one episode of wide-complex tachycardia. GENERAL: She is alert, complains of some mild shortness of breath. LUNGS: Lung sounds are clear, but a few crackles noted bases. CV: Regular with a normal S1 and S2. Sinus rhythm. ABDOMEN: Soft. Bowel sounds are present. EXTREMITIES: Show no peripheral edema. No clubbing and no cyanosis. LABORATORY DATA: Her potassium is 3, magnesium is 2.0. Troponin-I 0.04 to 0.85. CK-MB was 0.5 to 2.0. ASSESSMENT: 1. Wide-complex tachycardia. Most likely secondary to pacemaker function. We will check pacemaker report and further recommendations will be forthcoming. We will also check an echocardiogram for further evaluation of her ejection fraction. 2. Cardiac enzymes that are elevated. Only the troponin-I is elevated. We are going to continue Lovenox and aspirin and look at her echocardiogram. 3. Hypokalemia. Currently is being replaced. We would recommend to keep an eye on her potassium between 4 and magnesium at 2. 4. Clostridium difficile. She is currently on antibiotic therapy. 5. Hypertension. We will continue to monitor her blood pressure as we may need to add further medications if we cannot control it. The history of present illness, physical exam, assessment and plan are per Dr. Kaushik Rubio. We would like to thank Dr. Williamson for allowing us to participate in the patient's care. BRITANY LUO APRN FOR KAUSHIK RUBIO MD TGP/modl PATIENT'S NAME: LIZ WHITLEY [facility] AGE: 86 Y [address] ROOM: [place] [address] [facility] ADMIT DATE: 01/30/2017 Consultation DISCHARGE DATE: FAMILY PHYSICIAN: Brenda Andujar MD ATTENDING PHYSICIAN: Angelito Williamson /[id number] d: 02/03/172203 t: 02/12/17 0922, CONSULTATION REPORT
--- NOTE | ~2017-01-30 | CON ---
PATIENT'S NAME: LIZ WHITLEY [facility] AGE: 86 Y [address] ROOM: [address] [place] [address] [facility] ADMIT DATE: 01/30/2017 Consultation DISCHARGE DATE: FAMILY PHYSICIAN: Brenda Andujar MD ATTENDING PHYSICIAN: Angelito Williamson DATE OF CONSULTATION: 02/02/2017 REFERRING PHYSICIAN: Maty Narayan MD PALLIATIVE CARE CONSULT LOCATION: [place] [address]. This is a palliative care consult for patient and family support and goals of care. HISTORY OF PRESENT ILLNESS: This 86-year-old female was admitted on 01/30/2017 with sepsis and recurrent C. difficile colitis. This is patient's fourth admission with C. diff in the past few months. The patient has not recovered, each time got weaker, even had been on our skilled unit for a while to gain strength, but the patient continues to go home and then reoccurs with infections and then C. difficile. She currently was admitted with the fever, lethargy and weakness which began on 01/29/2017. She was having loose watery stools. She had been living at [facility]. Currently, the patient complains of nausea and did vomit this morning after her pills. Denies any shortness of breath. Did have chest pain last night and had an elevated blood pressure and is currently on a nitroglycerin drip. Denies any shortness of breath. Feels very tired and weak. PAST MEDICAL HISTORY: Sick sinus syndrome status post permanent pacemaker implant, chronic kidney disease stage III, essential hypertension, moderate protein calorie malnutrition, dyslipidemia, osteoarthritis, generalized weakness, generalized perirectal mass. The patient had refused workup for this in the past. HOME MEDICATIONS: 1. Acetaminophen 650 mg every 4 hours p.r.n. and was scheduled 650 mg p.o. b.i.d. 2. Proventil HFA 2 puffs q.i.d. 3. Albuterol nebulizer every 4 hours p.r.n. wheezing. 4. Amoxicillin 2 g p.o. x1 prior to dental procedures. 5. Bumex 2 mg p.o. daily. 6. Calcium with vitamin D 600 mg b.i.d. PATIENT'S NAME: LIZ WHITLEY [facility] AGE: 86 Y [address] ROOM: [address] [place], [place] [address] [facility] ADMIT DATE: 01/30/2017 Consultation DISCHARGE DATE: FAMILY PHYSICIAN: Brenda Andujar MD ATTENDING PHYSICIAN: Angelito Williamson 7. Vitamin D3 1000 units p.o. daily. 8. Citalopram 40 mg p.o. daily. 9. Klonopin 0.5 mg at bedtime. 10. Colace 100 mg p.o. b.i.d. 11. Pepcid 20 mg p.o. at bedtime. 12. Flonase 1 spray each nostril daily. 13. Gabapentin 300 mg b.i.d. 14. Milk of magnesia 30 mL p.o. daily p.r.n. 15. Melatonin 3 mg p.o. at bedtime. 16. Myrbetriq 50 mg at bedtime. 17. Nystatin topically p.r.n. 18. [place]-3 fatty acid 1000 mg p.o. q.i.d. 19. MiraLax 17 g daily. 20. Pravastatin 20 mg at bedtime. 21. Altace 10 mg p.o. daily. 22. Florastor 250 mg b.i.d. 23. Spironolactone 12.5 mg daily. ALLERGIES: VANCOMYCIN CAUSES A RASH. FAMILY HISTORY: Father had hypertension and heart disease, at the age of 95. Mother of appendicitis at the age of 23 and 1 brother. PAST SURGICAL HISTORY: Right shoulder replacement, left shoulder replacement, bilateral knee replacement, bilateral carpal tunnel, tonsillectomy, bilateral cataracts, pacemaker insertion. REVIEW OF SYSTEMS: A review of systems was done and is negative except as mentioned in HPI and listed below: GI: Appetite is decreased, taking only bites. Last bowel movement was 02/01/2017. MUSCULOSKELETAL: Complains of very weak and fatigue. CARDIAC: No chest pain or chest palpitations. PSYCHIATRIC: No history of depression, but positive for fatigue and loss of energy. PHYSICAL EXAMINATION: GENERAL: This is an 86-year-old, female, well-developed, in no acute distress. VITAL SIGNS: Temperature 98.3, pulse 68, respirations 16, blood pressure 195/85, O2 saturation is 94%. She is 5 feet 1 inch and weighs 180 with the PATIENT'S NAME: LIZ WHITLEY [facility] AGE: 86 Y [address] ROOM: [id number] [place], [place] [address] LOCATION: [facility] ADMIT DATE: 01/30/2017 Consultation DISCHARGE DATE: FAMILY PHYSICIAN: Brenda Andujar MD ATTENDING PHYSICIAN: Angelito Williamson BMI of 34.0. On last admission, she weighed 177. This was on 01/07/2017; 177 weight and BMI was 32.4. GENERAL: Alert and oriented, in no acute distress. SKIN: Warm and dry. Color very pale. HEENT: Normocephalic and atraumatic. Sclerae nonicteric. Conjunctivae pale and pink. Mouth is pink and moist without exudate. LYMPH: No cervical adenopathy or thyromegaly. RESPIRATORY: Clear to auscultation bilaterally. Breath sounds even and regular throughout. CARDIAC: S1, S2 without murmur. Paced rhythm on monitor. No JVD, 1+ lower extremity edema. ABDOMEN: Soft, rounded. Positive bowel tones. No hepatosplenomegaly. NEUROLOGICAL: Grossly intact. No focal deficits. MUSCULOSKELETAL: Appropriate range of motion. Decreased strength in upper and lower extremities. EXTREMITIES: No cyanosis. Generalized edema in upper extremities. Palliative performance scale is 40% mainly sitting or lying, unable to do most activity, total care, intake is minimal to sips. Conscious level is full and drowsy. IMPRESSION: 1. Nausea. 2. History of chest pain. 3. Weakness. 4. Fatigue. 5. Anorexia. 6. Malnutrition. PLAN: Met with patient and her daughters; Bob and Yesica Ovalle, who are also her medical power of tax attorney discussed chronic conditions, heart failure, pacer, recurrent C. difficile infections, pneumonia, UTI, history of fourth C. difficile infection. The patient declining with each time not improving. The patient states, "I am just done." Discussed options of continuing aggressive care versus comfort care and hospice. The patient is thinking about comfort cares. GOALS: 1. The patient wants to think about comfort cares versus hospice. 2. Make sure code status is do not resuscitate/do not intubate. 3. She would like to have blood pressure taken less often due to it bothering her arm and she is unable to sleep. RECOMMENDATIONS: PATIENT'S NAME: LIZ WHITLEY [facility] AGE: 86 Y [address] ROOM: [place] [address] [facility] ADMIT DATE: 01/30/2017 Consultation DISCHARGE DATE: FAMILY PHYSICIAN: Brenda Andujar MD ATTENDING PHYSICIAN: Angelito Williamson 1. Nausea, Zofran was ordered p.r.n. 2. Chest pain, morphine is ordered p.r.n. 3. Weakness and fatigue, PT on board, but the patient is too fatigued at this point to do PT. 4. Anorexia malnutrition, tried to control nausea. Maybe give meds after meals and Zofran p.r.n. We will follow up with the patient and daughters and readdress goals of care and wishes education done on goals of care, advance directive, hospice and comfort cares. Thank you for allowing me to assist with this patient and family. Total time was 65 minutes with 55 minutes for counseling on goals of care, Advanced Directives, hospice and comfort cares. JOE SALGUERO NP FOR MD CAROLINE CURTIS/solo /[id number] d: 02/03/17 0024 t: 02/11/17 1449, CONSULTATION REPORT
--- NOTE | ~2017-01-30 | ER ---
PATIENT'S NAME: LIZ WHITLEY [facility] AGE: 86 Y [address] ROOM: [address]6338 [place], [place] [address] LOCATION: GPCU ADMIT DATE: 01/30/2017 ER/Outpatient Report DISCHARGE DATE: FAMILY PHYSICIAN: Brenda Andujar MD ATTENDING PHYSICIAN: Angelito Williamson Time of Arrival: Time of Evaluation: Admission date and time documented in the medical record. I saw the patient at 0850 hours. CHIEF COMPLAINT: Fever, chills, rigors, and diarrhea. HISTORY OF PRESENT ILLNESS: This patient is an 86-year-old female, who was brought to the emergency room by paramedics via ambulance for evaluation. She has had a 2-day history of watery, uncontrolled, loose diarrhea. She developed a fever today with rigors and chills. No headache, eyes, ears, nose, throat, neck, or spine pain. No fall or trauma, was in the hospital in mid December with sepsis secondary to C. difficile colitis. No lightheadedness, dizziness, syncope, or near syncope. No chest pain, shortness of breath. No abdominal pain, nausea, or vomiting. No urinary symptoms. No joint muscle pain or redness. She does have peripheral edema. No skin eruptions or rash. No history of endocrine problems, neurological changes, or psychiatric issues. HOME MEDICATIONS: See attached medication list. ALLERGIES: GLUTEN, STRAWBERRIES. SOCIAL HISTORY: Nonsmoker and nondrinker. SIGNIFICANT PAST MEDICAL HISTORY: 1. Hypertension. 2. C. difficile colitis. 3. Gastroesophageal reflux. 4. Sepsis. 5. Pneumonia. 6. Rectal mass. 7. Depression. 8. Sick sinus syndrome. 9. Degenerative osteoarthritis. 10. Hypokalemia. PATIENT'S NAME: LIZ WHITLEY [facility] AGE: 86 Y [address] ROOM: G6338 [place], [place] [address] LOCATION: GPCU ADMIT DATE: 01/30/2017 ER/Outpatient Report DISCHARGE DATE: FAMILY PHYSICIAN: Brenda Andujar MD ATTENDING PHYSICIAN: Angelito Williamson 11. Candidal intertrigo. PAST SURGICAL HISTORY: Operations: 1. Carpal tunnel release. 2. Bilateral knee surgery. 3. Bilateral shoulder surgery. 4. Pacemaker insertion. 5. Tonsillectomy. REVIEW OF SYSTEMS: All systems reviewed by me are negative with the exception of those discussed in the History of the Present Illness. PHYSICAL EXAMINATION: VITAL SIGNS: Temperature 100.2, tympanic; pulse 62; respirations 22; blood pressure 126/52; and O2 saturation on room air is 91%. HEENT: Head; normocephalic. No abrasion, contusion, laceration, swelling of scalp or face. Eyes; extraocular muscles intact. PERRL. Sclerae and conjunctivae are clear, nonicteric. Ears, Nose, Throat; clear. Mucous membranes moist. NECK: No nuchal rigidity. No thyromegaly or cervical lymphadenopathy. LUNGS: Clear. Fairly good air flow. No rales, rhonchi, or wheezes. HEART: Regular. Pulses are palpable. ABDOMEN: Soft, nondistended, nontender. Good bowel tones. No organomegaly or abnormal mass palpable. GENITOURINARY: The patient is incontinent of stool. EXTREMITIES: Does have peripheral pitting edema. No cyanosis. No deformity. NEUROLOGIC: Cranial nerves intact. No lateralizing sign. The patient is awake, cooperative. Motor and sensory intact. No acute mental status changes. SKIN: Clear. No skin eruptions or rash. LABORATORY DATA AND IMAGING STUDIES: Chest x-ray shows left basilar infiltrate, streakiness. X-ray was read by Radiology, see dictated transcribed report. Laboratory: Urinalysis was clear. Culture pending. Two blood cultures drawn, results pending. Stool was obtained. Ova and parasite screen was negative. Few white blood cells, no red blood cells. C. difficile positive. Culture pending. Procalcitonin was 0.15. Lactate was 3.4. Venous pH was 7.41. Point of care cardiac enzymes were normal. CPK was 40. CMS was normal except for an elevated glucose of 131, elevated BUN of 33, elevated creatinine of 1.8, and low GFR of 27. CRP was 7.22, proBNP was 1722. White count 7400, 31 segs, 46 bands, 10 lymphocytes, 12 monos, 1 baso, hemoglobin is 13.5 with a PATIENT'S NAME: LIZ WHITLEY [facility] AGE: 86 Y [address] ROOM: [place] [address] LOCATION: GPCU ADMIT DATE: 01/30/2017 ER/Outpatient Report DISCHARGE DATE: FAMILY PHYSICIAN: Brenda Andujar MD ATTENDING PHYSICIAN: Angelito Williamson hematocrit of 41.2, and platelet count was 261,000. Sedimentation rate was 27, PTT was 24, and prothrombin time was 10.2 with an INR of 0.97. Serum ammonia was less than 10. EMERGENCY DEPARTMENT COURSE: I did start the patient on IV normal saline, gave her 1 L and then 150 mL an hour. Discuss the government required fluid infusion. Family thought this was excessive hydration and refused a 30 mL/kg. I did start the patient on IV Zosyn 4.5 g. Did draw 2 blood cultures. Culture results are pending. Urine culture is pending. IMPRESSION: 1. Sepsis etiology uncertain, could be pneumonia or Clostridium difficile colitis. 2. Hypertension. 3. Chronic kidney disease with a BUN of 33, creatinine 1.8, and glomerular filtration rate of 27. 4. History of depression. PLAN: I did discuss the patient with Dr. Williamson, hospitalist. We will admit the patient to the hospital for further evaluation and treatment. Awaiting blood cultures and urine cultures. We will treat her sepsis, start her on Zosyn. Did give her fluids, however, the family refused excess hydration of 30 mL/kg. Did get two blood cultures. Again results are pending. Discussion ensued with the patient and her family regarding my findings and recommendations, they understand. Accumulated critical care time 40 minutes. MD NAMRATA VICENTE/modl /[id number] d: 01/30/17 1836 t: 01/31/17 0610, OUTPATIENT REPORT
--- NOTE | ~2017-01-30 | HP ---
PATIENT'S NAME: LIZ WHITLEY [facility] AGE: 86 Y [address] ROOM: [place] [address] LOCATION: GPCU ADMIT DATE: 01/30/2017 History & Physical DISCHARGE DATE: FAMILY PHYSICIAN: Brenda Andujar MD ATTENDING PHYSICIAN: Angelito Williamson DATE OF SERVICE: CHIEF COMPLAINT: Sepsis with recurrent C. difficile colitis. HISTORY OF PRESENTING ILLNESS: This 86-year-old white female with previous history of depression, sick sinus syndrome, and hypertension as well as recurrent C. difficile colitis was brought to [facility] today with fever, lethargy, and weakness which began yesterday. She has also been having recurrent loose watery stools. Today at the half-way where she resides, she apparently had a fall without obvious injury. She was noted to have a fever of 102.7 and was subsequently brought to the emergency room for definitive evaluation and management. On her evaluation in the emergency room, she was found to have a suspected pneumonia. Later stool studies were positive for C. difficile. She was admitted here in September, again in December. She had an episode of C. difficile in October as well apparently. On her last admission, she developed an urticarial rash with oral vancomycin and was treated with Dificid. Her symptoms had essentially resolved, and she had been having formed stools for the last couple of weeks until today. On my evaluation, she wakes but is drowsy. She reports feeling a little cold. She denies headache, denies nausea. No chest pain, shortness of breath, or significant cough. Her daughter who is power of assistant attorney general, is at the bedside and reflects this history. She did complain of some abdominal distress earlier but that is better now. No numbness or tingling in her extremities or any associated physical or constitutional complaints. PAST MEDICAL HISTORY: ALLERGIES: VANCOMYCIN ORAL CAUSES A RASH. ILLNESSES: 1. Sick sinus syndrome, status post permanent pacemaker implant. 2. Chronic kidney disease, stage 3. 3. Essential hypertension. PATIENT'S NAME: LIZ WHITLEY [facility] AGE: 86 Y [address] ROOM: [address] [address] LOCATION: GPCU ADMIT DATE: 01/30/2017 History & Physical DISCHARGE DATE: FAMILY PHYSICIAN: Brenda Andujar MD ATTENDING PHYSICIAN: Angelito Williamson 4. Moderate protein-calorie malnutrition. 5. Dyslipidemia. 6. Osteoarthritis, generalized. 7. Generalized weakness. 8. Perirectal mass. She has refused workup for this in the past. CURRENT MEDICATIONS: 1. Acetaminophen 650 mg p.o. q.4 hours p.r.n. and 650 mg p.o. b.i.d. scheduled. 2. Proventil HFA 2 puffs p.o. q.i.d. 3. Albuterol per nebulizer q.4 hours p.r.n. wheezing. 4. Amoxicillin 2 g p.o. x1 prior to dental procedures. 5. Bumex 2 mg p.o. q. day. 6. Calcium with vitamin D 600 mg p.o. b.i.d. 7. Vitamin D3, 1000 units p.o. q. day. 8. Citalopram 40 mg p.o. q. day. 9. Klonopin 0.5 mg p.o. at bedtime. 10. Colace 100 mg p.o. b.i.d. 11. Pepcid 20 mg p.o. at bedtime. 12. Flonase nasal spray 1 spray each nostril daily. 13. Gabapentin 300 mg p.o. b.i.d. 14. Milk of magnesia 30 mL p.o. q. day p.r.n. 15. Melatonin 3 mg p.o. at bedtime. 16. Myrbetriq 50 mg p.o. at bedtime. 17. Nystatin applied topically p.r.n. 18. Austin-3 fatty acid 1000 mg p.o. q.i.d. 19. MiraLAX 17 g p.o. q. day. 20. Pravastatin 20 mg p.o. at bedtime. 21. Altace 10 mg p.o. q. day. 22. Florastor 250 mg p.o. b.i.d. 23. Spironolactone 12.5 mg p.o. q. day. FAMILY HISTORY: Negative for heart disease or stroke. SOCIAL HISTORY: She is and currently lives at [facility]. She is a lifelong nonsmoker. There is no significant history of alcohol use. REVIEW OF SYSTEMS: As per HPI. All other organ systems reviewed and are negative. PHYSICAL EXAMINATION: VITAL SIGNS: Temperature 100.2, pulse 62, respirations 22, blood pressure 126/52, and O2 saturation 91% on room air. PATIENT'S NAME: LIZ WHITLEY [facility] AGE: 86 Y [address] ROOM: [place] [address] [facility] ADMIT DATE: 01/30/2017 History & Physical DISCHARGE DATE: FAMILY PHYSICIAN: Brenda Andujar MD ATTENDING PHYSICIAN: Angelito Williamson GENERAL: She is frail, disheveled, ill appearing, lying in the bed, in no acute distress. She does demonstrate some myoclonic jerking. SKIN: Supple, pale, warm, and dry. No obvious rashes. HEENT: Otherwise, normocephalic. Sclerae nonicteric. Pupils equal, round, and reactive to light and accommodation. Extraocular movements appear intact. Nasal turbinates normal in appearance. Oropharynx is clear. Mucous membranes are pink and moist. NECK: Supple. Plethoric and obese. No masses or adenopathy. No thyromegaly. No JVD. CHEST: Chest wall is symmetrical. HEART: Regular with occasional extrasystoles. LUNGS: Coarse and diminished. Left greater than right. No crackles. No significant large airway congestion. ABDOMEN: Soft and obese. Diffusely tender but without guarding or rebound. No masses or hepatosplenomegaly. AND RECTAL: Not done. EXTREMITIES: Display 1 to 2+ pitting edema bilaterally right greater than left. LABORATORY AND X-RAY DATA: Chest x-ray showed a streaky infiltrate in the left lung base. A CBC showed white blood cell count of 7.4, hemoglobin 13.5, hematocrit 41.2, and platelets of 261,000. Chemistries reveal BUN and creatinine of 33 and 1.8 respectively. Sodium and potassium 139 and 3.8, chloride and CO2 are 101 and 28, and calcium is 9.0. AST and ALT 20 and 20 respectively, bilirubin is 0.7, and glucose is 131. Venous pH was 7.41, lactate was 3.4. Ammonia level was less than 10. A sedimentation rate was 27. Urinalysis; dipstick unremarkable. C-reactive protein was 7.22, procalcitonin 0.15, and stool for C. difficile was positive. Blood cultures pending. ASSESSMENT AND PLAN: 1. Sepsis. She was felt to meet sepsis criteria based on her clinical presentation, fever, and elevated lactate of 3.4. Time zero was pronounced at 9:30 a.m. She did receive broad-spectrum antibiotics with IV Zosyn in the emergency room. At this point, I suspect focus is primarily C. difficile colitis. Left basilar pneumonia is a secondary differential consideration. She does not seem to be particularly symptomatic with pneumonia. She is at high risk for healthcare-acquired pneumonia and therefore, we will plan to continue with broad-spectrum antibiotic therapy with cefepime and linezolid for now. We will follow up on culture results when they are known and hopefully be able to streamline her antibiotic therapy quickly. No aggressive fluid bolus given that her lactate was less than 4 and there are no clear signs of hypoperfusion. We will need to watch her fluid volume balance closely. Plan to continue with broad-spectrum antibiotic therapy, supportive PATIENT'S NAME: LIZ WHITLEY [facility] AGE: 86 Y [address] ROOM: [place] [address] LOCATION: GPCU ADMIT DATE: 01/30/2017 History & Physical DISCHARGE DATE: FAMILY PHYSICIAN: Brenda Andujar MD ATTENDING PHYSICIAN: Angelito Williamson, and clinical monitoring. 2. Clostridium difficile colitis, recurrent. She would probably be best suited with oral vancomycin, but had an adverse reaction to this at her last hospital stay. We will start oral Dificid. I believe this is the fourth episode in the last 5 months. She may need consideration for fecal transplant. Consider Gastroenterology consultation and/or Infectious Disease consultation depending on her clinical progress. We will continue with probiotics, oral Dificid therapy, and supportive cares as above. 3. Acute kidney injury, prerenal secondary to sepsis as above. We will continue with some careful IV fluid hydration, but avoid overzealous hydration. We will start normal saline at 75 mL/h and follow. We will hold potentially offending medications. 4. Encephalopathy. Infectious versus toxic metabolic. Continue with supportive cares and management of sepsis as outlined above. 5. Right metatarsal fractures, currently appear minimally symptomatic. We will observe caution and protect the area. Consider re-consultation by Orthopedic Surgery. 6. Essential hypertension, appears well controlled currently. We will hold the oral antihypertensive regimen and monitor and reinitiate carefully. 7. Sick sinus syndrome, status post permanent pacemaker implant. Appears to be functioning normally. 8. Moderate protein-calorie malnutrition. We will work toward balance nutritional intake. We will try to mobilize her and improve her physical status. 9. Generalized weakness. We will allow bedrest today but consider physical therapy, occupational therapy, and mobilize her soon. 10. Osteoarthritis, generalized. Symptomatic measures. No nonsteroidal antiinflammatory drugs. 11. Lower extremity edema. Suspect venous stasis as the primary culprit. There is no clearly documented history of heart failure. We will hold the diuretic regimen for today in light of her renal dysfunction. 12. Deep venous thrombosis prophylaxis. We will use heparin subcutaneous while she is inpatient. Total time spent on admission process 50 minutes of which more than 50% was spent in counseling and coordinating care. MD GRACIE GARAY/solo PATIENT'S NAME: LIZ WHITLEY [facility] AGE: 86 Y [address] ROOM: [place] [address] [facility] ADMIT DATE: 01/30/2017 History & Physical DISCHARGE DATE: FAMILY PHYSICIAN: Brenda Andujar MD ATTENDING PHYSICIAN: Angelito Williamson /[id number] D: T: 830 HISTORY & PHYSICAL
--- NOTE | ~2017-01-30 | ECHO ---
Transthoracic Echocardiography Report (TTE) Demographics Patient Name LIZ WHITLEY Date of Study 02/01/2017 J Patient Number [id number] Visit Number [id number] Date of 1930 Room Number G6338 Gender Female Number Age 86 year(s) Referring Con Grace MD Motor And Generator Brush Maker Tatianna T, [facility] Physician Laure Physician Interpreting Luz Elena Faulkner MD Concrete Journeyman Physician Supervising Ordering Luz Elena Faulkner MD, MD/MLP Physician Nurse Stress Wad Printing Machine Operator Conclusions Contractility Score Summary Normal Left Ventricular contractility was noted. Summary The estimated left ventricular ejection fraction is 60-65%. Moderate concentric left ventricular hypertrophy. Diastolic assessment reveals Grade I diastolic dysfunction. The left atrium is mildly dilated. There is mild aortic stenosis by the Continuity Equation. The peak velocity is 2.28 m/s, the 13 mean gradient is mmHg, and the valve area based on the continuity equation is 1.7 cm2. Mild tricuspid regurgitation by color Doppler. Procedure Type of Study TTE procedure:2D Echocardiogram, M-Mode, Doppler , Color Doppler. Procedure Date Date: 02/01/2017 Start: 06:12 PM Study Location: Inpatient Portable Technical Quality: Fair Indications:Tachycardia. Appropriate Use Criteria: 9 Patient Status: Routine HR: 65 bpm BP: 211/89 mmHg M-Mode/2D Measurements LV Diastolic Dimension: 3.47 cm LV Systolic Dimension: 2.28 cm LV Septum Diastolic: 1.47 cm LV PW Diastolic: 1.55 cm AO Root Dimension: 2.1 cm Cardiac Output: 6.74 l/min AV Cusp Separation: 1.3 cm RV Diastolic Dimension: 2.98 cm LA volume: 38 ml LVOT: 2.2 cm RV Base: 2.38 cm LVOT VTI: 27.3 cm RV Mid: 2.59 cm LV Stroke volume: 103.72 ml TAPSE: 2.42 cm TDI-S': 16.7 cm/s Doppler Measurements AV Peak Velocity: 2.28 m/s MV Peak E-Wave: 0.61 m/s AV Peak Gradient: 20.79 mmHg MV Peak A-Wave: 1.12 m/s AV Mean Gradient: 13 mmHg MV E/A Ratio: 0.55 LVOT Peak Velocity: 1.09 m/s MV P1/2t: 64 msec TR Gradient:30.69 mmHg PV Peak Velocity: 0.79 m/s Estimated RAP:3 mmHg PV Peak Gradient: 2.46 mmHg Estimated RVSP: 34 mmHg Estimated PASP: 33.69 mmHg E' Septal Velocity: 0.07 m/s A' Septal Velocity: 0.1 m/s E' Lateral Velocity: 0.08 m/s A' Lateral Velocity: 0.14 m/s Findings Left Ventricle Mild to moderate concentric left ventricular hypertrophy. Diastolic assessment reveals Grade I diastolic dysfunction. Right Ventricle Normal right ventricle structure and function. Left Atrium The left atrium is mildly dilated. Right Atrium Normal right atrial size. Mitral Valve Mild mitral annular calcification. Aortic Valve The aortic valve is moderately sclerotic. There is mild aortic stenosis by the Continuity Equation. The peak velocity is 2.28 m/s, the 13 mean gradient is mmHg, and the valve area based on the continuity equation is 1.7 cm2. There is trivial aortic regurgitation by color Doppler. Tricuspid Valve Mild tricuspid regurgitation by color Doppler. There is mild pulmonary hypertension. The pulmonary pressure (RVSP) is 31 mmHg. Pulmonic Valve The pulmonic valve is not well visualized. Pericardial Effusion No evidence of pericardial effusion. Pleural Effusion Pleural effusion present. Contractility Score LV regional wall motion:(0-Non visualized 1-Normal 2-Hypokinesis 3-Akinesis 4-Dyskinesis 5-Aneurysm) Signature dtt: Kaushik Laguna (cardio) dtd: 02/01/17 4850 Physician Self Edit
--- NOTE | ~2017-01-30 | DS ---
PATIENT'S NAME: LIZ CHACKO [facility] AGE: 86 Y [address] ROOM: [address] [address] LOCATION: GPCU ADMIT DATE: 01/30/2017 Discharge Summary DISCHARGE DATE: 02/04/2017 FAMILY PHYSICIAN: Brenda Andujar MD ATTENDING PHYSICIAN: Angelito Williamson PRINCIPAL DISCHARGE DIAGNOSIS: Sepsis secondary to Clostridium difficile, recurrent. SECONDARY DIAGNOSES: 1. Grade 1 diastolic dysfunction. 2. Aortic stenosis, mild. 3. Metatarsal fracture, right foot. 4. Acute kidney injury with creatinine of 1.8 and BUN of 33 on admission, resolved with creatinine of 0.9 and BUN of 11 on 02/03/2017. 5. Encephalopathy, infectious, is resolved. 6. Malignant hypertension. 7. Acute diastolic congestive heart failure with elevated proBNP and troponin, but normal CK-MB. 8. Mild protein-calorie malnutrition, prealbumin of 17. 9. Chronic lower extremity edema. CONSULTATIONS: Cardiology, Dr. Laguna, on 02/01/2017. PROCEDURES: Echocardiogram. BRIEF SUMMARY OF FINDINGS: Maintained left ventricular ejection fraction at 60% to 65%, moderate concentric left ventricular hypertrophy, grade 1 diastolic dysfunction, mild aortic stenosis. BRIEF HISTORY: Ms. Chacko is a hermelindo 86-year-old female, who is residing at a retirement and has had recurrent C. diff several times this year. She presented to the emergency room with a temperature of 102.7, had some encephalopathy associated with this illness included fever, lethargy, and loose watery stools. C. difficile PCR was positive. She was started on Dificid. She was also treated with IV fluids for acute kidney injury, developed increasing shortness of breath at rest. She had some pulmonary vascular congestion on chest x-ray. Bumex, that she is on at home, had been held and it was resumed. Cardiology was consulted. Echo findings as above. She also had associated elevated blood pressure and was started on nitroglycerin drip. Her blood pressure was slow to improve on the drip. She was given increased doses of amlodipine and then requested to be removed from her nitroglycerin PATIENT'S NAME: LIZ CHACKO [facility] AGE: 86 Y [address] ROOM: [address] [address] LOCATION: GPCU ADMIT DATE: 01/30/2017 Discharge Summary DISCHARGE DATE: 02/04/2017 FAMILY PHYSICIAN: Brenda Andujar MD ATTENDING PHYSICIAN: Angelito Williamson. Her daughter, Yesica, asked for palliative care consult, which was obtained on 02/02/2017. The patient elected for comfort measures yesterday. Mother and home were consulted and they agreed to accept her on hospice care as we initiated comfort cares yesterday and thus she is to be transferred there. INSTRUCTIONS AT DISCHARGE: Diet as tolerated. Activity as tolerated. Follow up with Dr. Laguna in 2 weeks. MEDICATIONS AT THE TIME OF DISCHARGE: 1. Tylenol p.r.n. for pain or fever. 2. Amlodipine 5 mg p.o. b.i.d. 3. Ramipril 10 mg p.o. daily. 4. Bumex 1 mg p.o. every morning. 5. Dificid 200 mg p.o. b.i.d. to continue through 9 a.m. dose on 02/09/2017. 6. Fluticasone nasal spray daily. 7. Melatonin at h.s. daily. 8. Florastor 250 p.o. b.i.d. x30 days. 9. Spironolactone 25 mg p.o. b.i.d., this constitutes an increased dose and should be held for a systolic blood pressure less than 110 and any signs or symptoms of dehydration. 10. Bisacodyl suppository FL p.r.n. for constipation. 11. Colace 100 mg p.o. b.i.d. p.r.n. for constipation. 12. Magnesium hydroxide 30 mL p.o. p.r.n. for constipation. 13. Roxanol 5 mg sublingual p.r.n. 14. Nystatin ointment topically to intertrigo, thighs, and perineum. 15. Zofran q.4 hours p.r.n. 16. Compazine. 17. Simethicone set up per her comfort cares protocol. 18. Celexa 40 mg p.o. daily. 19. Pepcid 20 mg p.o. q.h.s. 20. Gabapentin 300 p.o. b.i.d. should be held for sedation. 21. Klonopin 0.5 mg at bedtime p.r.n. for anxiety. 22. Albuterol sulfate q.4 hours p.r.n. for wheeze or dyspnea. The patient and her daughters are in agreement with the discharge plan. more than 30 minutes spent in discharge process. CONDITION AT DISCHARGE: Fair. Thank you very much for your assistance with this dictation. PATIENT'S NAME: LIZ CHACKO [facility] AGE: 86 Y [address] ROOM: [place] [address] LOCATION: [facility] ADMIT DATE: 01/30/2017 Discharge Summary DISCHARGE DATE: 02/04/2017 FAMILY PHYSICIAN: Brenda Andujar MD ATTENDING PHYSICIAN: Angelito Williamson MD LM/modl /[id number] d: 02/05/17 0345 t: 02/05/17 1822, DISCHARGE SUMMARY
[2017-01-30 09:30] LABS: LACTATE 3.4 mEq/L (0.50-1.60)
[2017-01-30 09:31] LABS: HEMATOCRIT 41.2 % (30.0-46.0); HEMOGLOBIN 13.5 g/dL (10.0-15.0); MCH 32.1 pg (27.0-34.0); MCHC 32.8 gm/dL (32.0-36.5); MCV 97.9 fl (83.0-98.0); MPV 8.8 fl (9.4-12.4); PLATELET COUNT 261 K/uL (150-450); RBC 4.21 M/uL (3.00-5.00); RDW-CV 13.7 % (11.9-14.6); WBC 7.4 K/uL (4.0-11.0)
[2017-01-30 09:38] LABS: INR - (THERAPEUTIC) 0.97 (0.92-1.07); PROTIME 10.2 SECONDS (9.8-11.4); PTT 24 SECONDS (25-32)
[2017-01-30 09:54] LABS: ALBUMIN 3.1 gm/dL (3.5-5.0); ALK PHOS 49 IU/L (33-138); ALT 20 IU/L (12-78); ANION GAP 13.8 (10.0-19.0); AST 20 IU/L (10-40); BLOOD UREA NITROGEN 33 mg/dL (6-24); CHLORIDE 101 mMol/L (96-110); CO2 28 mMol/L (22-32); CPK 40 IU/L (21-215); CREATININE 1.8 mg/dL (0.5-1.1); POTASSIUM 3.8 mMol/L (3.7-5.1); SODIUM 139 mMol/L (135-145); TOTAL BILIRUBIN 0.7 mg/dL (0.0-1.5); TOTAL PROTEIN 6.8 g/dL (6.0-8.4)
[2017-01-30 09:55] LABS: ABSOLUTE NEUTROPHIL CT (ANC) 5.7 K/uL (1.8-7.8); BANDED NEUTROPHIL # 3.4 K/uL (0.0-0.1); BANDED NEUTROPHILS % 46 %; LYMPHOCYTE # 0.7 K/uL (0.8-4.0); LYMPHOCYTE % 10 %; MONOCYTE # 0.9 K/uL (0.0-1.0); SEGMENTED NEUTROPHIL # 2.3 K/uL (1.8-7.8); SEGMENTED NEUTROPHIL % 31 %
[2017-01-30 10:03] LABS: ESTIMATED GFR (MDRD EQUATION) 27
[2017-01-30 10:53] LABS: BILIRUBIN URINE NEGATIVE (NEGATIVE); BLOOD URINE NEGATIVE /UL (NEGATIVE); GLUCOSE URINE NEGATIVE (NEGATIVE); KETONE URINE NEGATIVE (NEGATIVE); LEUKOCYTES URINE NEGATIVE /UL (NEGATIVE); NITRITE URINE NEGATIVE (NEGATIVE); PROTEIN URINE NEGATIVE (NEGATIVE); UROBILINOGEN URINE NORMAL (NORMAL)
[2017-01-30 10:55] LABS: COLOR URINE YELLOW (YELLOW); TURBIDITY URINE CLEAR (CLEAR)
--- NOTE | 2017-01-30 13:56 | NUR ---
ADMIT NOTE: A 86 YR. OLD W/F ADMITTED FROM ER, ARRIVED VIA AMBULANCE. PT. VERY SLEEPY, BUT THIS IS NORMAL FOR HER. ELEVATED TEMP, AND DIARRHEA. POSITIVE FOR C-DIFF IN ER, THIS IS HER 4TH BOUT OF THIS. PT. HAS A KNOWN FX ON DORSAL RT. FOOT, AND HAS A BRACE FOR THAT. PATIENT A/O X 3, BUT CAM +. FORGETFUL. ADMITTED FOR UROSEPSIS
[2017-01-30 15:21] LABS: BICARBONATE 28.4 mmol/L (18.0-23.0); PCO2 34 mmHg (35-45); PO2 66 mmHg (80-90)
[2017-01-30 16:47] LABS: BICARBONATE 33.4 mmol/L (18.0-23.0); PCO2 47 mmHg (35-45); PO2 93 mmHg (80-90)
--- NOTE | 2017-01-30 19:06 | NUR ---
Significant Event: PT. DROWSEY, KEEPS EYES CLOSED MOST OF TIME, WILL RESPOND AND SAY "I'M LISTENING". BUT, CONT. TO KEEP EYES CLOSED. REMY. Follow up: CONT. IV ANTIBIOTICS. MONITER FEVER.
[2017-01-30 22:39] LABS: BICARBONATE 29.8 mmol/L (18.0-23.0); LACTATE 1.1 mEq/L (0.50-1.60); PCO2 46 mmHg (35-45)
[2017-01-30 22:40] LABS: PO2 128 mmHg (80-90)
--- NOTE | 2017-01-31 04:26 | NUR ---
Significant Event: A/O x2, forgetful. Drowsy beginning of shift. More awake/alert later in evening, able to hold conversation and drink fluids on own. Denied pain. VSS on 1-2L. SBP 120-130s. HRs 60s. LS clear/dim. Bowel sounds active. Gave IV antibiotic. NS running continuous @ 75ml/hr. 1 loose BM. Enrique w/ 250ml out, dark yellow/tea colored urine. Turn q 2 hours. Follow up: Continue to monitor neuro status.
--- NOTE | 2017-01-31 16:08 | NUR ---
Significant Event: MUCH MORE ALERT ALL DAY TODAY. A/O X 3. FORGETFUL. AFEBRILE. HR PACED IN 60'S. SATS 95% ON ROOM AIR. SBP 134-153. 1 SM, 1MOD,1 LRG. LOOSE FLAKY YELLOW ODEROUS BM'S. [place]. LOWER LEG EDEMA. FEEDS SELF. FAIR TO GOOD APPETITE. TAKES ORAL FLUIDS WELL, TAKE MEDS WHOLE WITHOUT DIFFICULTY. Follow up: CONT. PLAN OF CARES. TURN Q 2 HOURS. ALOE VESTA BOTTOM, DUE TO STOOLING.
--- NOTE | 2017-02-01 04:09 | NUR ---
Significant Event:VSS, PT AFEBRILE. BPS RUNNING IN THE 160-170 RANGE. PT SEEMS VERY FORGETFUL THIS SHIFT, THOUGH SHE IS ALERT AND ORIENTED WHEN QUESTIONED. NO BM THIS SHIFT-DID HAVE A SMALL SMEAR. PT DOES COMPLAIN OF PAIN IN HER RIGHT LEG, TYLENOL GIVEN X2. REPOSITTIONED Q2. CONTINUES ON RA WITH SATS IN THE LOWER 90'S. GOOD URINE OUTPUT PER ASH. COOPERATIVE WITH CARES. Follow up:
[2017-02-01 04:48] LABS: BASOPHIL # 0.1 K/uL (0.0-0.2); BASOPHIL % 1.1 %; EOSINOPHIL # 0.1 K/uL (0.0-0.5); EOSINOPHIL % 1.7 %; HEMATOCRIT 34.2 % (30.0-46.0); HEMOGLOBIN 11.1 g/dL (10.0-15.0); IMMATURE GRANULOCYTE # 0.1 K/uL (0.0-0.3); IMMATURE GRANULOCYTE % 0.8 %; LYMPHOCYTE % 16.1 %; MCH 31.9 pg (27.0-34.0); MCHC 32.5 gm/dL (32.0-36.5); MCV 98.3 fl (83.0-98.0); MONOCYTE # 0.5 K/uL (0.0-1.0); MONOCYTE % 8.5 %; NEUTROPHIL # (ANC) 4.6 K/uL (1.8-7.8); NEUTROPHIL % 71.8 %; NRBC % 0.3 /100WBC (0-0.00); PLATELET COUNT 241 K/uL (150-450); RBC 3.48 M/uL (3.00-5.00); RDW-CV 13.1 % (11.9-14.6); WBC 6.4 K/uL (4.0-11.0)
[2017-02-01 05:10] LABS: ALBUMIN 2.2 gm/dL (3.5-5.0); CALCIUM 7.8 mg/dL (8.5-10.5)
[2017-02-01 05:11] LABS: PHOSPHORUS 1.7 mg/dL (2.5-4.9)
--- NOTE | 2017-02-01 12:55 | NUR ---
Reviewed Mona's chart. It appears she is from [facility] here in town. I visited with her RN Karly, who tells me that she may need to go to a SNF upon dismissal from us to get stronger in order to go back to [facility]. I was up on the floor when Dr. Narayan was rounding so I asked that she write to have PT/OT eval and treat so if Malcom did need to go to a SNF when she was medically stable, then I would have therapy notes to send them. Dr. Narayan states she did write for therapies to eval and treat. RN Karly also tells me that Mona is in Isolation and she is currently on IV Abxs, but she thinks that those will be switched over to PO medications before she would dismiss. I let Britni know that I would most likely have [facility] come over and evaluate before she is ready for dismissal to make sure they can't accept back with some sort of HHC prior to her leaving us and getting placed at a SNF if that is what Mona and family want. I called over to [facility] and talked with Aleida, she states that prior to Mona coming into us, she was getting around well and still had HHC on board through [facility]. Aleida states that either her or Beatriz will come up and evaluate her prior to being ready to dismiss and then let me know what they recommend at that point. Let her know that this was fine and I would continue to keep them updated. DANUTA castillo to follow and assist.
--- NOTE | 2017-02-01 17:01 | NUR ---
A&O FORGETFUL. FULL LIFT TURN Q2. C/O ABD/EPIGASTRIC PIAN +28 BT VTACH X3 . HTN 240'S. HR 60'S. AFEBRILE. SAT 100% ON 1L PER MD. CXR,EKG,LABS,TRIPONIN ELEVATEED START NITRO GTT. REPLACE MG AND K. PACER. EDEMA 2+. FX TO R METATARS BOOT IN CLOSET., PT/OT. PLACEMENT DAUGHTER AT BEDSIDE. ISO C DIFF BM X1/LOT OF GAS.
[2017-02-01 22:07] LABS: PHOSPHORUS 2.7 mg/dL (2.5-4.9); POTASSIUM 3.5 mMol/L (3.7-5.1)
[2017-02-02 05:48] LABS: BASOPHIL # 0.1 K/uL (0.0-0.2); BASOPHIL % 0.9 %; EOSINOPHIL % 0.2 %; HEMATOCRIT 34.9 % (30.0-46.0); HEMOGLOBIN 11.9 g/dL (10.0-15.0); IMMATURE GRANULOCYTE # 0.2 K/uL (0.0-0.3); IMMATURE GRANULOCYTE % 1.8 %; LYMPHOCYTE # 1.1 K/uL (0.8-4.0); LYMPHOCYTE % 11.2 %; MCH 32.4 pg (27.0-34.0); MCHC 34.1 gm/dL (32.0-36.5); MCV 95.1 fl (83.0-98.0); MONOCYTE # 0.7 K/uL (0.0-1.0); MONOCYTE % 7.4 %; MPV 8.6 fl (9.4-12.4); NEUTROPHIL # (ANC) 7.6 K/uL (1.8-7.8); NEUTROPHIL % 78.5 %; NRBC % 0 /100WBC (0-0.00); PLATELET COUNT 280 K/uL (150-450); RBC 3.67 M/uL (3.00-5.00); RDW-CV 13.1 % (11.9-14.6); WBC 9.7 K/uL (4.0-11.0)
[2017-02-02 06:03] LABS: ALBUMIN 2.3 gm/dL (3.5-5.0); ANION GAP 11.4 (10.0-19.0); CALCIUM 8.4 mg/dL (8.5-10.5); CREATININE 0.9 mg/dL (0.5-1.1); MAGNESIUM 2.2 mg/dL (1.8-2.6); PHOSPHORUS 2.4 mg/dL (2.5-4.9); POTASSIUM 4.4 mMol/L (3.7-5.1)
[2017-02-02 06:14] LABS: ALBUMIN 2.2 gm/dL (3.5-5.0); ALK PHOS 42 IU/L (33-138); ALT 14 IU/L (12-78); AST 21 IU/L (10-40); TOTAL PROTEIN 5.5 g/dL (6.0-8.4)
[2017-02-02 06:17] LABS: TOTAL BILIRUBIN 0.3 mg/dL (0.0-1.5)
--- NOTE | 2017-02-02 06:43 | NUR ---
Significant Event: DENIED CP ALL NIGHT. NITRO GTT AT 15MCG/MIN ALMOST ALL NIGHT EXCEPT FOR WHEN IT WAS TURNED UP TO 20 MCG/MIN AROUND 0600. O2 WEANED OFF. ASH PATENT WITH 2325ML UO. AT LEAST 1 DAUGHTER AT BEDSIDE ALL NIGHT. AN EXTRA 40 KCL IV WAS GIVEN FOR A K+ OF 3.5. NO BM THIS SHIFT. Follow up:
--- NOTE | 2017-02-02 16:20 | NUR ---
1200 Introduced self and CM role to Mona and her two daughters who were at bedside. I am familiar with them from Mona's previous hospital stays. Daughters tells me that Mona has been living at [facility] and getting [facility]. They are not for sure if she will be able to return there at this time, but are waiting for doctors to round to give them a more clear picture of what the plan may be. Daughters also state that they are open to her going to a SNF if needed. I let them know that I would be happy to look into this for them as soon as they knew what Mona was going to need upon dismissal. SNF options for family 1st to last choice would be [facility], [facility], [facility] and [facility], they also prefer a private room if available. I let them know that we would see what we could get worked out. 1530 Call from [facility] RN Jaki stating that she met with Malcom and daughters and they are leaning towards her going to a SNF on [facility], but are going to take the night to think over things and then get back to Jaki with the final answer tomorrow. I let Jaki know that this was fine. I would contact SNFs in town to see which ones could accept and then report back to her. Talked with Marya at [facility], they have open female bed, not a private room, but could potentially take Mona upon dismissal, faxed referral over to her. Talked with Gilma at [facility], they have female bed open, not sure if there was a private room or not, referral was faxed to them. I called and talked with Elida, admissions clerk for [facility] and [facility], she tells me that both facilities are full at this time and can't accept patients as of now. Let her know that this was fine. Will wait to hear back from [facility] and [facility]. Packet started, orders printed and no ID Screen is done yet. CM to continue to follow and assist.
[2017-02-03 03:43] LABS: HEMOGLOBIN 11.3 g/dL (10.0-15.0); MCHC 33.2 gm/dL (32.0-36.5); MCV 96.3 fl (83.0-98.0); MPV 8.9 fl (9.4-12.4); PLATELET COUNT 286 K/uL (150-450); RBC 3.53 M/uL (3.00-5.00); RDW-CV 13.2 % (11.9-14.6); WBC 9.4 K/uL (4.0-11.0)
[2017-02-03 03:55] LABS: ALBUMIN 2.4 gm/dL (3.5-5.0); ANION GAP 12.9 (10.0-19.0); CALCIUM 8.3 mg/dL (8.5-10.5); CREATININE 0.9 mg/dL (0.5-1.1); POTASSIUM 3.9 mMol/L (3.7-5.1)
--- NOTE | 2017-02-03 05:04 | NUR ---
Pt oriented x 3 but is confused at times. 1 liter per NC while asleep but room air while awake. Pt requires repositioning q 2h. Enrique in place. Poor appetite. Pt continues on NTG at 20 mcg/min for HTN. Pt remains on a 1500 ml daily fluid restriction.
--- NOTE | 2017-02-03 05:49 | NUR ---
SBP 191, ntg increased to 30mcg/min
[2017-02-03 06:21] LABS: ABSOLUTE NEUTROPHIL CT (ANC) 6.8 K/uL (1.8-7.8); LYMPHOCYTE # 1.7 K/uL (0.8-4.0); LYMPHOCYTE % 18 %; MONOCYTE # 0.8 K/uL (0.0-1.0); SEGMENTED NEUTROPHIL # 6.8 K/uL (1.8-7.8); SEGMENTED NEUTROPHIL % 72 %
--- NOTE | 2017-02-03 14:16 | NUR ---
A - PT SCREENED D/T LOS. CONFUSED @ TIMES. DECREASED APPETITE. 1-2+ EDEMA. GTl 61" WT: 180# BMI: 33.9. LABS: GLU 115, ALB 2.4, PREALB 17, CRP 7.22. MEDS: BOWEL/NAUSEA, ALDACTONE, BUMEX, FLORASTOR. DIET: LOW LACTOSE, 1500 ML FLUID. INTAKE: REF-75%. NEEDS: [id number] KCAL (15-20 KCAL/KG), 65-82 G PRO (0.8-1 G/KG), 1500 ML FLUID (PER MD). D - INADEQUATE NUTRIENT INTAKE R/T DECREASED APPETITE AEB INTAKE RECORD. I - GOAL FOR INTAKE 50-100% BY NEXT ASSESSMENT. WILL ADD ENSURE CLEAR TID. M/E - WILL MONITOR INTAKE F/U IN 3-5 DAYS.
--- NOTE | 2017-02-03 14:27 | NUR ---
Received a call from Britni at [facility]. She states that they can accept patient as self pay hospice not skilled. I called and updated Aleksandra COLE. She has a meeting with patients daughter and Dr Narayan at 1230. I called Britni at [facility] and updated her on family meeting. She states that they can come evaluate patient between [phone]. Updated Aleksandra. I attempted to call and notify patients daughter did not answer cell phone. I did call Aleksandra and she states that daughter was aware they were coming to evaluate her mother. Will continue to follow.
--- NOTE | 2017-02-03 17:52 | NUR ---
Significant Event: A/O X 3. SOMETIMES FORGETFUL. PT. MADE COMFORT CARES. Follow up: VS ONCE A SHIFT.
--- NOTE | 2017-02-04 05:16 | NUR ---
Pt with 1 small smear at start of shift. Refused to have BP taken. other VS stable on RA, afebrile. refused turns most of the night. apap given scheduled at hs and then again this am at 0400 for R ankle pain. slept majority of the noc with no other complaints. Enrique with 525 out. Plan: [facility] today?
--- NOTE | 2017-02-04 10:33 | NUR ---
TRANSFER NOTE: A/O X 3. DENIES PAIN. GIVEN ZOFRAN FOR NAUSEA AT 0930. SCATTERED BRUISING ARMS. RT. BOOT FOR DORSAL FX. SATS 93% ON ROOM AIR. GIVEN B/P MEDS AND HER A.M. MEDS. FEEDS SELF. CONT. WITH HOSPICE CARE AT [facility].
--- NOTE | 2017-02-04 12:41 | NUR ---
934 Call from Britni at [facility] stating that they can accept Mona today to the facility on [facility]. Let her know that I was out yesterday, so I would need to confirm this plan with Mona and her daughters before I knew if she could go or not. 939 Stopped up to [facility] room, Jaki with [facility] was there and already talking with Mona and her daughter. I updated them that [facility] could take today, they were all in agreement with this. Jaki also states that [facility] can also accept today. I let them know that I would call Britni back to [facility] to tell her that Mona and family were fine with this plan. 944 Call to Karly, let her know Mona coming to them was fine. Karly tells me that [place] [facility] will be here at 1045 to transport. I phoned Dr. Narayan to tell her about transfer time, she was already aware and tells me she will be around shortly to do orders. I updated RN Unique to this, gave her RN to RN number to call in report before Mona left. Jaki was going to work on orders now. Packet started, orders already printed, ID Screen completed and put on the chart. 1100 Dr. Narayan just finished orders so they were faxed over to [facility] and to [facility] prior to Mona leaving. [place] [facility] is here to mixing picker tender already. No other questions, needs or concerns. CM to continue to follow and assist. Plan for transfer to [facility] on [facility].
== END 2017-02-04 11:20 | disposition hospice, inpatient (51) | DRG 871 ==
LOC: GMED 08:37 → GPCU 11:37
PROVIDERS: Emergency Medicine; Internal Medicine; ADMIT Family Medicine
DX: A41.9 Sepsis, unspecified organism (principal); I50.31 Acute diastolic (congestive) heart failure; N17.9 Acute kidney failure, unspecified; G93.49 Other encephalopathy; A04.7 Enterocolitis due to Clostridium difficile; E44.0 Moderate protein-calorie malnutrition; I48.0 Paroxysmal atrial fibrillation; F32.9 Major depressive disorder, single episode, unspecified; E78.5 Hyperlipidemia, unspecified; I13.0 Hypertensive heart and chronic kidney disease with heart failure and stage 1 through stage 4 chronic kidney disease, or unspecified chronic kidney disease; N18.3 Chronic kidney disease, stage 3 (moderate); Z51.5 Encounter for palliative care; M15.9 Polyosteoarthritis, unspecified; S92.301A Fracture of unspecified metatarsal bone(s), right foot, initial encounter for closed fracture; Z95.0 Presence of cardiac pacemaker; I35.0 Nonrheumatic aortic (valve) stenosis; N39.41 Urge incontinence; E87.6 Hypokalemia; I87.2 Venous insufficiency (chronic) (peripheral); Z96.611 Presence of right artificial shoulder joint; Z96.653 Presence of artificial knee joint, bilateral; Z96.612 Presence of left artificial shoulder joint; Z79.01 Long term (current) use of anticoagulants
CPT/HCPCS: A9270; C9113; J0360; J0692; J1644; J2020; J2270; J2405; J2543; J3475; J3480; J7030; J7040; J7050

== ENCOUNTER → 2017-01-30 | Outpatient (CLI) | payer MEDICARE, OTHER ==
[~2017-01-30] MED LIST changes: +ALBUTEROL2.5 MG/31 INH; +BUMETANIDE2 MG PO; +DIFICID200 MG PO; +FLAGYL500 MG PO; +PROVENTIL OR V6.7 GM INH
== END | disposition disaster alternative care site (69) ==
LOC: GAMB 08:05
DX: R19.7 Diarrhea, unspecified (principal); A04.7 Enterocolitis due to Clostridium difficile; I10 Essential (primary) hypertension; K21.9 Gastro-esophageal reflux disease without esophagitis; R68.83 Chills (without fever)
CPT/HCPCS: A0422; A0425; A0429; J7030